=== PATIENT | male | born 1955 ===

== ENCOUNTER 2021-02-04 01:09 | Outpatient (RCR) ==
[2021-02-04 08:18] LABS: ANION GAP 13.9 mmol/L (8-16); CALCIUM 8.5 mg/dL (8.4-10.2); CREATININE, SERUM 0.76 mg/dL (0.72-1.25); POTASSIUM 4.9 mmol/L (3.5-5.1)
== END 2021-02-20 ==
LOC: NPA 01:09
DX: Z13.89 Encounter for screening for other disorder (principal)
CPT/HCPCS: 36415; 80048